=== PATIENT | female | born 1960 | race Caucasian/White ===

== ENCOUNTER 2021-03-19 05:39 | Day surgery (SDC) | payer MEDICAID ==
[2021-03-11 16:26] LABS: BASOPHILS % (AUTO) 0.4 % (0-1); EOSINOPHILS # (AUTO) 0.1 X10'3 (0-0.9); EOSINOPHILS % (AUTO) 1.6 % (0-6); MEAN CORPUSCULAR HEMOGLOBIN 30.3 PG (27.0-31.0); MEAN CORPUSCULAR HGB CONC 34.1 g/dL (33.0-36.5); MEAN PLATELET VOLUME 8.2 FL (7.4-10.4); MONOCYTES # (AUTO) 0.5 X10'3 (0-0.9); MONOCYTES % (AUTO) 7.3 % (2-12); NEUTROPHILS # (AUTO) 4.7 X10'3 (1.8-7.7); NEUTROPHILS % (AUTO) 63.7 % (42-75); PRE OP HEMATOCRIT 36.8 % (35.0-45.0); PRE OP HEMOGLOBIN 12.5 g/dL (12.0-16.0); PRE OP PLATELET COUNT 356 X10'3 (140-440); RED BLOOD COUNT 4.13 X10'6 (4.20-5.60); RED CELL DISTRIBUTION WIDTH 13.7 % (11.5-14.5)
[2021-03-11 16:30] LABS: ALBUMIN 3.6 G/DL (3.4-5.0); ALBUMIN/GLOBULIN RATIO 0.9 (1.1-1.5); ALKALINE PHOSPHATASE 52 IU/L (46-116); BLOOD UREA NITROGEN 22 MG/DL (7-18); BUN/CREATININE RATIO 25.9 (6.6-38.0); CALCIUM 8.7 MG/DL (8.5-10.1); CHLORIDE 107 MMOL/L (99-107); CREATININE 0.85 MG/DL (0.40-0.90); PRE OP ALT 37 U/L (30-65); PRE OP ANION GAP 10 (8-16); PRE OP AST 19 U/L (10-37); PRE OP BILIRUB, TOTAL 0.2 MG/DL (0.0-1.0); PRE OP GLUCOSE 109 MG/DL (70-104); PRE OP POTASSIUM 3.4 MMOL/L (3.4-5.1); PRE OP SODIUM 148 MMOL/L (135-145); TOTAL CARBON DIOXIDE 31.3 MMOL/L (24-32); TOTAL PROTEIN 7.4 G/DL (6.4-8.2); eGFR 68 ML/MIN
[2021-03-19] VITALS (12 sets, daily range): BP systolic 133–168; BP diastolic 81–109
[~2021-03-19] VITALS: Ht 166.4 cm; Wt 96.2 kg
[~2021-03-19 05:39] MED LIST: ALBU6.7H9 INH; ATOM60CA PO; ceFAZolin 2gm in dextrose, iso 50 ML IV ONE; famotidine 20mg tablet PO ONE; ringers solution, lacted 1,000 ML IV SCH; vancomycin 1,500 MG in NS 300ml IV soln IV ONE
[2021-03-19] MEDS ORDERED: BUPIVAcaine/PF 2.5 mg/ml (0.25%) 30ml vial ONE (06:49)
[2021-03-19] MEDS ORDERED: triamcinolone acetonide 40mg/ml inj ONE (06:49)
[2021-03-19] MEDS ORDERED: fentaNYL/PF 50MCG/1 ML 2ML syringe ONE ×2 (07:13→07:39)
[2021-03-19] MEDS ORDERED: midazolam 1 mg/ML 2ml injection ONE (07:13)
[2021-03-19] MEDS ORDERED: LIDOcaine 2% (20mg/ml) 5ml vial ONE (07:15)
[2021-03-19] MEDS ORDERED: propofol inj 20 ML IV ONE (07:15)
[2021-03-19] MEDS ORDERED: proCHLORperazine 10 MG/2 ml inj IV PRN (07:20)
[2021-03-19] MEDS ORDERED: morphine 4 MG/ML inj SYRINge IV PRN (07:20)
[2021-03-19] MEDS ORDERED: ringers solution, lacted 1,000 ML IV SCH (07:20)
[2021-03-19] MEDS ORDERED: meperidine/PF 25mg/ml syringe IV PRN ×2 (07:20)
[2021-03-19] MEDS ORDERED: morphine 2 MG/ML inj. syringe IV PRN (07:20)
[2021-03-19] MEDS ORDERED: ondansetron/PF 4mg/2ml inj IV PRN (07:20)
[2021-03-19] MEDS ORDERED: dexamethasone sod phosphate 4mg/ml inj. ONE (08:12)
[2021-03-19] MEDS ORDERED: acetaminophen 1,000mg/100ml IV 100 ML IV ONE (08:12)
[2021-03-19] MEDS ORDERED: ondansetron/PF 4mg/2ml inj ONE (08:12)
--- NOTE | 2021-03-19 08:31 | NUR ---
Received from OR via [facility] IN STABLE CONDITION , accompanied by Anesthesiologist and COMMERCIAL RELATIONSHIP MANAGER report given by COMMERCIAL RELATIONSHIP MANAGER AND Anesthesiolgist. Addendum: 03/19/21 at 0904 by Sharmila Mann RN Amended: Links added.
[2021-03-19] MEDS: meperidine/PF 25mg/ml syringe IV PRN ×2 (08:57→09:31)
[2021-03-19] MEDS ORDERED: HYDROcodone/acetaminophen 5mg/325mg tablet PO ONE (09:30)
--- NOTE | 2021-03-19 10:21 | NUR ---
PATIENT DISCHARGED FROM PACU IN STABLE CONDITION AFTER WRITTEN AND VERBAL DISCHARGE INSTRUCTIONS GIVEN. PATIENT GAVE VERBAL UNDERSTANDING OF INSTRUCTIONS GIVEN. PATIENT LEFT FACILITY VIA WHEELCHAIR WITH RN. Addendum: 03/19/21 at 1038 by Sharmila Mann RN Amended: Links added.
== END 2021-03-19 10:21 | disposition home or self-care (01) ==
LOC: PAS 05:39 → EDSTATUS 07:30 → PAS 10:21
PROVIDERS: ATTEND Orthopaedic Surgery
DX: S83.231A Complex tear of medial meniscus, current injury, right knee, initial encounter (principal); S83.271A Complex tear of lateral meniscus, current injury, right knee, initial encounter; M94.261 Chondromalacia, right knee; M17.0 Bilateral primary osteoarthritis of knee; M19.071 Primary osteoarthritis, right ankle and foot; E66.01 Morbid (severe) obesity due to excess calories; Z68.34 Body mass index [BMI] 34.0-34.9, adult; J45.909 Unspecified asthma, uncomplicated; F41.9 Anxiety disorder, unspecified; F32.9 Major depressive disorder, single episode, unspecified; G47.33 Obstructive sleep apnea (adult) (pediatric); Z20.822 Contact with and (suspected) exposure to COVID-19; Z90.710 Acquired absence of both cervix and uterus; Z98.890 Other specified postprocedural states; Z79.899 Other long term (current) drug therapy; Z88.8 Allergy status to other drugs, medicaments and biological substances; Z83.3 Family history of diabetes mellitus; Z80.0 Family history of malignant neoplasm of digestive organs; Z82.49 Family history of ischemic heart disease and other diseases of the circulatory system; X58.XXXA Exposure to other specified factors, initial encounter; Y93.89 Activity, other specified; Y92.89 Other specified places as the place of occurrence of the external cause; Y99.8 Other external cause status
CPT/HCPCS: 29873; 29879; 29880; 36415; 80053; 82948; 85025; 93005; J0131; J1100; J2001; J2175; J2250; J2405; J2704; J3010; J3301; J3370; J3490; J7040; U0003; U0005; Z7506; Z7508; Z7512; A4215; A4618; A6250; A6449; A7000; J7120

== ENCOUNTER 2022-07-17 13:22 | Emergency (ER) | payer MEDICAID ==
[~2022-07-17] VITALS: Ht 165.1 cm; Wt 97.0 kg
[~2022-07-17 13:22] MED LIST changes: +ALBU6.7H14 INH; -ALBU6.7H9 INH; -ceFAZolin 2gm in dextrose, iso 50 ML IV ONE; -famotidine 20mg tablet PO ONE; -ringers solution, lacted 1,000 ML IV SCH; -vancomycin 1,500 MG in NS 300ml IV soln IV ONE
[2022-07-17 13:27] VITALS: BP 173/102
[2022-07-17] MEDS ORDERED: ketorolac trometh inj. 60 MG/2 ML VIAL IM ONE (14:17)
== END 2022-07-17 15:16 | disposition home or self-care (01) ==
LOC: ER 13:22
DX: M25.531 Pain in right wrist (principal); E78.00 Pure hypercholesterolemia, unspecified; J45.909 Unspecified asthma, uncomplicated; F41.9 Anxiety disorder, unspecified; Z56.0 Unemployment, unspecified; Z90.49 Acquired absence of other specified parts of digestive tract; Z88.2 Allergy status to sulfonamides; Z88.1 Allergy status to other antibiotic agents; Z79.899 Other long term (current) drug therapy
CPT/HCPCS: 73110; 99283